=== PATIENT | male | born 1995 | race Caucasian/White ===

== ENCOUNTER 2019-10-04 13:51 | Emergency (ER) | payer OTHER, SELFPAY ==
--- NOTE | 2019-10-04 13:55 | ED.URI ---
HPI - URI/Sore Throat General Chief Complaint: Upper Respiratory Infection Stated Complaint: STUFFY NOSE/COUGH Time Seen by Provider: 10/04/19 14:22 Source: patient and RN notes reviewed Mode of arrival: ambulatory Limitations: no limitations History of Present Illness HPI Narrative: 23-year-old male presents with 5-day history of nasal congestion, rhinorrhea, cough, general malaise. Denies taking any [id number] medications for symptom relief. MD elicited complaint: cough Related Data Home Medications Medication Instructions Recorded Confirmed No Home Medications 10/04/19 10/04/19 Allergies Allergy/AdvReac Type Severity Reaction Status Date / Time No Known Allergies Allergy Mild Verified 10/04/19 14:13 Review of Systems Review of Systems: Narrative: CONSTITUTIONAL: Reports malaise, chills, sweats. Denies fever. EYES: Denies visual changes, redness, or discharge. ENT: Reports rhinorrhea, congestion, sore throat. Denies sinus pain, otalgia. CARDIOVASCULAR: Denies chest pain, palpitations, or edema. RESPIRATORY: Reports cough. Denies dyspnea. GASTROINTESTINAL: Denies abdominal pain, nausea, vomiting, diarrhea SKIN: Denies rash or itching. MUSCULOSKELETAL: Denies myalgia. NEUROLOGIC: Reports headache. All systems reviewed & are unremarkable except as noted in HPI and below PMFSH Comments At time of signature, agree with nursing past medical, surgical, social and family history. There is no relevant family history pertinent to the presenting complaint Exam Narrative: Exam Narrative: GENERAL: Well-appearing, well-nourished, and in no acute distress. HEAD: Normocephalic, atraumatic. EYES: PERRLA, conjunctivae clear, and EOMI. ENT: Nares clear, turbinates edematous and erythematous, clear discharge. Mucous membranes moist. TM pearly pinzon with dull light reflex bilaterally; no tragal tenderness. Oropharynx erythematous without lesions. Tonsils enlarged and without exudate, no drooling, no hoarseness, no trismus. NECK: Supple. No lymphadenopathy CHEST: Clear to auscultation, breath sounds equal. No wheezing, rhonchi, rales, or stridor. No respiratory distress, speaks in full sentences. HEART: Regular rate and rhythm. No murmur heard. Normal peripheral pulses. SKIN: Warm, dry, no rash. NEURO: Alert and oriented x3. PSYCH: Normal mood and affect Course Course Emergency Course: Patient is aware of diagnosis, understands and agrees to treatment plan. Anticipatory guidance given. Patient agrees to follow-up as directed and is aware of reasons to seek care at the emergency department. Portions of this record may have been created with voice recognition software Vital Signs Vital signs: Vital Signs Temperature 97.4 F L 10/04/19 14:07 Pulse Rate 105 H 10/04/19 14:07 Respiratory Rate 10/04/19 14:07 Blood Pressure 140/75 10/04/19 14:07 Pulse Oximetry 96 10/04/19 14:07 Temperature 97.4 F L 10/04/19 14:07 Pulse Rate 105 H 10/04/19 14:07 Respiratory Rate 10/04/19 14:07 Blood Pressure 140/75 10/04/19 14:07 Pulse Oximetry 96 10/04/19 14:07 Reviewed. MDM - URI/Sore Throat MDM Narrative Medical decision making narrative: Differential diagnosis considered: Strep pharyngitis, allergic rhinitis, upper respiratory tract infection, sinusitis, rhinosinusitis, nasopharyngitis. viral pharyngitis, otitis media, otitis externa, pneumonia, bronchitis, viral cough syndrome, viral syndrome, and influenza. Exam findings show no acute concerns or changes; patient is non-toxic appearing and is in no distress. Patient is appropriate for outpatient treatment and follow-up. Critical Care Time Critical Care Time Critical Care Time: No Discharge Plan Discharge Clinical Impression: Sinobronchitis Patient Disposition: Home, Self-Care Condition: Stable Instructions: Upper Respiratory Infection (ED) Additional Instructions: Viral illness may last between 7-21 days; antibiotic is NOT recommen
[2019-10-04 14:07] VITALS: BP 140/75; PULSE 105; RESP 20; TEMP 36.3; O2SAT 96
== END 2019-10-04 14:42 | disposition home or self-care (01) ==
PROVIDERS: Emergency Provider Nurse Practitioner
DX: J32.9 Chronic sinusitis, unspecified (principal); J40 Bronchitis, not specified as acute or chronic; E78.00 Pure hypercholesterolemia, unspecified
CPT/HCPCS: 99213; G0463

== ENCOUNTER 2020-02-17 19:40 | Emergency (ER) | payer OTHER, SELFPAY ==
[2020-02-17 19:43] VITALS: BP 145/70; PULSE 94; RESP 16; TEMP 36.3; O2SAT 96
--- NOTE | 2020-02-17 19:53 | ED.EAR ---
HPI - Ear Problem General Chief complaint: Ear Stated complaint: really really bad ear inf Time Seen by Provider: 02/17/20 19:45 Source: patient and family Mode of arrival: ambulatory Limitations: no limitations History of Present Illness HPI Narrative: Pt presents with left ear pain over the past two days. Pt with throbbing inner ear pain, rated 5/10 in severity. Dull, aching in nature. No drainage or discharge. No swelling, redness outside of the ear. No fever, pt reports mild sore throat, no rhinorrhea. No recent sick contacts, no recent swimming. Pt denies headache or vision changes. Related Data Allergies Allergy/AdvReac Type Severity Reaction Status Date / Time No Known Allergies Allergy Mild Verified 02/17/20 19:40 Review of Systems Constitutional: Constitutional: Denies fever(s) Eyes: Eyes: Denies change in vision ENT: Denies ear discharge and Denies nasal congestion Respiratory: Respiratory: Denies cough Gastrointestinal: Gastrointestinal: Denies abdominal pain PMFSH Past Medical History Medical History (Updated 02/17/20 @ 20:13 by Cherelle Shi MD) Hyperlipidemia Surgical History Surgical History (Updated 02/17/20 @ 20:06 by Cherelle Shi MD) History of tonsillectomy Social History Social History (Updated 02/17/20 @ 20:06 by Cherelle Shi MD) Smoking status: Current every day smoker Alcohol intake: current Drinks per week: 1 Alcohol use details: rarely Substance use: current Substance use type: marijuana Living arrangements: with family Gender identity (if verbalized by the patient): Male Exam Const: General: cooperative and no acute distress HENMT: Head: normocephalic Ears: external ears normal, TM normal on the right and TM abnormal (left TM erythematous, effusion present, no perforation) Mouth: Yes Normal oral and palatal mucosa present and Yes tongue normal Throat: no postnasal drainage and tonsils absent Eyes: General: appearance normal, both eyes and all related structures Resp: Effort & Inspection: normal respiratory effort Cardio: Rate: regular rate Rhythm: regular rhythm Skin: General skin exam: normal color and no rashes or lesions noted Neuro: General: patient oriented x3 and CN's II-XI intact bilaterally Speech: normal speech Course Vital Signs Vital signs: Vital Signs Temperature 36.3 C L 02/17/20 19:43 Pulse Rate 94 02/17/20 19:43 Respiratory Rate 16 02/17/20 19:43 Blood Pressure 145/70 H 02/17/20 19:43 Pulse Oximetry 96 02/17/20 19:43 Temperature 36.3 C L 02/17/20 19:43 Pulse Rate 94 02/17/20 19:43 Respiratory Rate 16 02/17/20 19:43 Blood Pressure 145/70 H 02/17/20 19:43 Pulse Oximetry 96 02/17/20 19:43 Medical Decision Making MDM Narrative Medical decision making narrative: Pt presented for left ear pain. Pt with evidence of left otitis media, no perforation, no signs of mastoiditis. Pt will be started on oral antibiotics. Advised to return if symptoms worsen, unable to tolerate antibiotics or other concerns. Pt then discharged home in stable condition. Differential Diagnosis Differential Diagnosis: Otitis externa, otitis media, URI, strep pharyngitis, pharyngitis Vital Signs Vital Signs: Vital Signs Temperature 36.3 C L 02/17/20 19:43 Pulse Rate 94 02/17/20 19:43 Respiratory Rate 16 02/17/20 19:43 Blood Pressure 145/70 H 02/17/20 19:43 Pulse Oximetry 96 02/17/20 19:43 Temperature 36.3 C L 02/17/20 19:43 Pulse Rate 94 02/17/20 19:43 Respiratory Rate 16 02/17/20 19:43 Blood Pressure 145/70 H 02/17/20 19:43 Pulse Oximetry 96 02/17/20 19:43 Discharge Plan Discharge Clinical Impression: Otitis media Qualifiers: Otitis media type: serous Chronicity: acute Laterality: left Recurrence: non-recurrent Qualified Code(s): H65.02 - Acute serous otitis media, left ear Patient Disposition: Home, Self-Care Condition: Stable Instructions: Antibiot
[2020-02-17 20:35] VITALS: BP 137/80; PULSE 90; RESP 15; O2SAT 97
== END 2020-02-17 20:35 | disposition home or self-care (01) ==
PROVIDERS: Emergency Provider Emergency Medicine
DX: H65.02 Acute serous otitis media, left ear (principal)
CPT/HCPCS: 99283

== ENCOUNTER 2023-02-27 19:10 | Emergency (ER) | payer OTHER, SELFPAY ==
--- NOTE | 2023-02-27 19:12 | ED.DENTAL ---
HPI - Dental/Oral General Chief complaint: Dental/Oral Stated complaint: DENTAL PAIN Time Seen by Provider: 02/27/23 19:11 Source: patient Mode of arrival: ambulatory Limitations: no limitations History of Present Illness HPI Narrative: Mr. Alcazar is a 27-year-old male patient presenting to the clinic today with complaints of dental pain x2 days. He reports he is having pain in the left lower posterior tooth with left lower jaw pain. Also reports that the left ear is hurting. Related Data Allergies Allergy/AdvReac Type Severity Reaction Status Date / Time No Known Allergies Allergy Mild Verified 02/27/23 19:17 Review of Systems Review of Systems: Pertinent positives per HPI. Patient denies any fever, chills, rash, headache, visual changes, dizziness, cough, runny nose, sore throat, shortness of breath, chest pain, palpitations, nausea, vomiting, diarrhea, constipation, abdominal pain, or any urinary issues. PMFSH Past Medical History Medical History Hyperlipidemia Surgical History Surgical History History of tonsillectomy Social History Social History Smoking status: Current every day smoker Alcohol intake: current Drinks per week: 1 Alcohol use details: rarely Substance use: current Substance use type: marijuana Living arrangements: with family Gender identity (if verbalized by the patient): Male Comments At the time of my signature, I reviewed and agree with the nursing past medical, surgical, social, and family history. There is no relevant family history pertinent to the patient complaint. Exam Narrative: General: Well-developed, well nourished, in no apparent distress Head: Normocephalic, atraumatic Eyes: Pupils equally round and reactive to light bilaterally, EOM intact, sclera and conjunctive clear, no discharge, lids normal Ears: TMs intact and clear, ear canals clear, no drainage, grossly hearing normal. Nose: Nares patent, no discharge, no inflammation, no sinus tenderness. Mouth: Oropharynx without lesions or masses, very poor dentition, MMM. Impacted infected left lower posterior molar Neck: Supple, trachea midline, no enlargement of anterior or posterior cervical nodes, no thyroid masses or goiter palpable. Cardio: Regular rate and rhythm, s1 and s2 normal, no murmur appreciated. Resp: Clear to auscultation bilaterally anteriorly and posteriorly, no rhonchi, rales, wheezing or rubs Course Course Emergency Course: Portions of this record may have been created with voice recognition software. Level of Care: Express Care Visit Vital Signs Vital signs: Vital signs reviewed MDM - Dental/Oral MDM Narrative Medical decision making narrative: At the time of visit patient is resting comfortably on the exam table. I suspect patient has left posterior molar infection. Will send in prescription for amoxicillin. Supportive measures were discussed with the patient and he voiced understanding discharge instructions agrees to treatment plan. Differential Diagnosis Differential diagnosis: Likely gingival abscess, dental caries, toothache, dental abscess, fracture of tooth and aphthous ulcer Discharge Plan Discharge Clinical Impression: Dental infection Patient Disposition: Home, Self-Care Condition: Stable Instructions: Antibiotic Form, Toothache (ED) Additional Instructions: Take antibiotic as prescribed May take Tylenol/Motrin as needed for pain May apply heat pack to the affected area to help alleviate pain Follow-up with your dentist as soon as possible Prescriptions: New amoxicillin 875 mg tablet 875 mg PO Q12H 10 Days Qty: 20 0RF Follow-up/Referrals: UNKNOWN,DOCTOR [Non-Staff] - Time of Disposition: 19:22 Quality [facility] Nursing Documentat
[2023-02-27 19:22] VITALS: BP 149/91; PULSE 95; RESP 16; TEMP 36.2; O2SAT 96
[2023-02-27 19:28] VITALS: BP 149/91; PULSE 95; RESP 16; TEMP 36.2; O2SAT 96
== END 2023-02-27 19:26 | disposition home or self-care (01) ==
PROVIDERS: Emergency Provider Nurse Practitioner Family
DX: K04.7 Periapical abscess without sinus (principal); F17.200 Nicotine dependence, unspecified, uncomplicated; F12.90 Cannabis use, unspecified, uncomplicated; E78.5 Hyperlipidemia, unspecified
CPT/HCPCS: 99203; G0463